=== PATIENT | female | born 1955 | race Caucasian/White ===

== ENCOUNTER 2016-12-13 13:58 | Emergency (ER) | payer MEDICARE, OTHER ==
[~2016-12-13] VITALS: Ht 165.1 cm; Wt 77.2 kg
[~2016-12-13 13:58] MED LIST: AMIT50TA3 PO; ATEN25 PO; DILT90SR PO; FERR-89 PO; GABA-531 PO; HYDR-4031 PO; HYDR2 PO; MET750 PO; MULT-1192 PO; PARO20TA24 PO; RIVA20TA PO
[2016-12-13 16:30] VITALS: BP 157/90
== END 2016-12-13 17:11 | disposition home or self-care (01) ==
LOC: EMS 14:00 → EEVIPCON 14:00 → EMS 17:11
DX: S09.90XA Unspecified injury of head, initial encounter (principal); I10 Essential (primary) hypertension; F17.200 Nicotine dependence, unspecified, uncomplicated; Z88.8 Allergy status to other drugs, medicaments and biological substances; Y08.89XA Assault by other specified means, initial encounter; Y93.89 Activity, other specified; Y92.89 Other specified places as the place of occurrence of the external cause; Y99.8 Other external cause status
CPT/HCPCS: 70450; 99284

== ENCOUNTER 2017-01-05 00:01 | Outpatient (RCR) | payer MEDICARE, MEDICAID, SELFPAY ==
[2014-12-17 13:54] VITALS: BP 137/83
[~2017-01-05 00:01] MED LIST changes: +ALPR0.5T8 PO; +ALPR1TAB7 PO; +AMIT25TA34 PO; +AMLO2.5T PO; +AMOX500T2 PO; -ATEN25 PO; +ATEN25TA PO; +CARV6 PO; +DICL2100G TP; +DILT-39 PO; +DILT120T PO; +DULO20CA30 PO; +DULO60CA44 PO; +FERR325C PO; +HYDR-308 PO; +HYDR4TAB56 PO; +METH750T3 PO; +OLAN10TA6 PO; +PANT40TA25 PO; +SENN-49 PO; +WARF1 PO; +WARF2 PO; +WARF5 PO; +WARF6TAB23 PO; +WARF7.5 PO; +elavil PO
[2017-01-30 07:16] LABS: HEPATITIS C AB SCREEN 0.1 s/co ratio (0.0-0.9)
== END 2017-02-03 | disposition home or self-care (01) ==
LOC: IOPBV 00:01
PROVIDERS: ATTEND Psychiatry & Neurology Psychiatry
DX: F25.9 Schizoaffective disorder, unspecified (principal); I10 Essential (primary) hypertension; K21.9 Gastro-esophageal reflux disease without esophagitis; G89.29 Other chronic pain; I25.10 Atherosclerotic heart disease of native coronary artery without angina pectoris; Q24.9 Congenital malformation of heart, unspecified; M79.7 Fibromyalgia; M41.80 Other forms of scoliosis, site unspecified; F32.9 Major depressive disorder, single episode, unspecified; F17.210 Nicotine dependence, cigarettes, uncomplicated; F12.21 Cannabis dependence, in remission; F14.21 Cocaine dependence, in remission; Z86.79 Personal history of other diseases of the circulatory system; Z79.01 Long term (current) use of anticoagulants; Z86.718 Personal history of other venous thrombosis and embolism; Z87.81 Personal history of (healed) traumatic fracture; Z88.8 Allergy status to other drugs, medicaments and biological substances
CPT/HCPCS: 86705; 86706; 86708; 86709; 86803; 87340; 90853

== ENCOUNTER 2017-06-04 11:36 | Emergency (ER) | payer MEDICARE, OTHER ==
[~2017-06-04] VITALS: Ht 167.6 cm; Wt 75.0 kg
[~2017-06-04 11:36] MED LIST changes: -ALPR0.5T8 PO; -ALPR1TAB7 PO; -AMIT25TA34 PO; -AMLO2.5T PO; -AMOX500T2 PO; -CARV6 PO; -DICL2100G TP; -DILT-39 PO; -DILT120T PO; -DULO20CA30 PO; -DULO60CA44 PO; -FERR325C PO; -HYDR-308 PO; -HYDR2 PO; -HYDR4TAB56 PO; -METH750T3 PO; -OLAN10TA6 PO; -PANT40TA25 PO; -SENN-49 PO; -WARF1 PO; -WARF2 PO; -WARF5 PO; -WARF6TAB23 PO; -WARF7.5 PO; -elavil PO
[2017-06-04 12:46] LABS: BASOPHILS # (AUTO) 0.27 K/uL (0.00-0.20); BASOPHILS % (AUTO) 3.5 % (0.0-2.0); EOSINOPHILS % (AUTO) 3.83 % (1.0-6.0); HEMATOCRIT 40.2 % (36-46); HEMOGLOBIN 13.4 g/dL (12.0-16.0); LYMPHOCYTES # (AUTO) 2.7 K/uL (1.0-4.8); LYMPHOCYTES % (AUTO) 34.1 % (22.0-44.0); MEAN CORPUSCULAR HEMOGLOBIN 29.3 pg (26.0-34.0); MEAN CORPUSCULAR HGB CONC 33.4 G/dL (31.0-37.0); MEAN CORPUSCULAR VOLUME 88 fL (80-100); MONOCYTES # (AUTO) 0.3 K/uL (0.1-1.0); MONOCYTES % (AUTO) 4.3 % (2.0-9.0); NEUTROPHILS # (AUTO) 4.2 K/uL (1.8-7.7); NEUTROPHILS % (AUTO) 54.2 % (40.0-70.0); PLATELET COUNT (AUTO) 190 K/uL (150-450); RED BLOOD CELL COUNT(AUTO) 4.58 MIL/uL (4.00-5.20); RED CELL DISTRIBUTION WIDTH 14.5 % (11.5-14.5)
[2017-06-04 12:54] LABS: ANION GAP 8 mmol/L (8-16); CALCIUM, TOTAL 8.7 mg/dL (8.8-10.5); CARBON DIOXIDE 27 mmol/L (22-29); CHLORIDE 101 mmol/L (98-107); CREATININE 0.85 mg/dL (0.60-1.30); GLOMERULAR FILTR. RATE CALC > 60 mL/min (>60); GLUCOSE,RANDOM 103 mg/dL (70-110); POTASSIUM 4.2 mmol/L (3.5-5.1); SODIUM SERUM 136 mmol/L (136-145); UREA NITROGEN, BLOOD 11 mg/dL (7-18)
[2017-06-04 13:00] LABS: ALANINE AMINOTRANSFERASE 26 U/L (12-78); ALBUMIN 3.3 g/dL (3.4-5.0); ALKALINE PHOSPHATASE 75 U/L (46-116); ASPARTATE AMINOTRANSFERASE 20 U/L (15-37); BILIRUBIN,TOTAL 0.2 mg/dL (0.1-1.0); TOTAL PROTEIN, SERUM 6.9 g/dL (6.4-8.2)
[2017-06-04 14:35] LABS: AMPHET/METH SCREEN,URINE NEGATIVE (NEGATIVE); BARBITURATE SCREEN, URINE NEGATIVE (NEGATIVE); BENZODIAZEPINES SCREEN,URINE NEGATIVE (NEGATIVE); CANNABINOID SCREEN,URINE NEGATIVE (NEGATIVE); COCAINE SCREEN,URINE NEGATIVE (NEGATIVE); METHADONE SCREEN, URINE NEGATIVE (NEGATIVE); OPIATE SCREEN,URINE NEGATIVE (NEGATIVE)
[2017-06-04 14:36] LABS: PHENCYCLIDINE SCREEN,URINE NEGATIVE (NEGATIVE)
[2017-06-04 15:15] VITALS: BP 103/70
[2017-06-07] MEDS ORDERED: FERR-89 PO (13:17)
== END 2017-06-04 16:01 | disposition home or self-care (01) ==
LOC: EMS 11:39
DX: F72 Severe intellectual disabilities (principal); F10.129 Alcohol abuse with intoxication, unspecified; I10 Essential (primary) hypertension; F20.9 Schizophrenia, unspecified; F32.9 Major depressive disorder, single episode, unspecified; F17.210 Nicotine dependence, cigarettes, uncomplicated; Z02.89 Encounter for other administrative examinations; Z88.8 Allergy status to other drugs, medicaments and biological substances; Y90.6 Blood alcohol level of 120-199 mg/100 ml
CPT/HCPCS: 36415; 80053; 80307; 85025; 99285; G0480

== ENCOUNTER 2017-06-12 16:56 | Inpatient (IN) | payer MEDICARE, MEDICAID ==
[~2017-06-12] VITALS: Ht 154.9 cm; Wt 75.7 kg
[~2017-06-12 16:56] MED LIST changes: -GABA-531 PO; -HYDR-4031 PO; -MET750 PO; -MULT-1192 PO; -PARO20TA24 PO
[2017-06-12] MEDS ORDERED: ZOLPIDEM TARTRATE 10 MG TABLET PO PRN (18:45)
[2017-06-12 19:02] VITALS: BP 131/77
[2017-06-12 19:47] VITALS: BP 146/78
[2017-06-12] MEDS ORDERED: IBUPROFEN 400 MG TABLET PO PRN (21:00)
[2017-06-12] MEDS: AMITRIPTYLINE HCL 50 MG TABLET PO SCH (21:24)
[2017-06-12] MEDS ORDERED: PNEUMOCOCCAL VACCINE POLYVALENT 0.5 ML VIAL [PPSV23] IM ONE (21:30)
[2017-06-13 04:13] VITALS: BP 149/86
[2017-06-13] MEDS: LORazepam 1 MG TABLET PO PRN ×2 (04:18→10:06)
[2017-06-13] MEDS: FERROUS SULFATE 325 MG EC TABLET PO SCH ×2 (06:59→16:41)
[2017-06-13 08:04] VITALS: BP 127/64
[2017-06-13 08:09] LABS: BASOPHILS % (AUTO) 0.7 % (0.0-2.0); EOSINOPHILS % (AUTO) 2.1 % (1.0-6.0); HEMATOCRIT 36.6 % (36-46); HEMOGLOBIN 12.4 g/dL (12.0-16.0); LYMPHOCYTES # (AUTO) 1.4 K/uL (1.0-4.8); LYMPHOCYTES % (AUTO) 28.9 % (22.0-44.0); MEAN CORPUSCULAR HEMOGLOBIN 28.6 pg (26.0-34.0); MEAN CORPUSCULAR HGB CONC 33.8 G/dL (31.0-37.0); MEAN CORPUSCULAR VOLUME 85 fL (80-100); MONOCYTES # (AUTO) 0.5 K/uL (0.1-1.0); MONOCYTES % (AUTO) 10.3 % (2.0-9.0); NEUTROPHILS # (AUTO) 2.8 K/uL (1.8-7.7); PLATELET COUNT (AUTO) 131 K/uL (150-450); RED BLOOD CELL COUNT(AUTO) 4.33 MIL/uL (4.00-5.20); RED CELL DISTRIBUTION WIDTH 13.9 % (11.5-14.5)
[2017-06-13 08:17] LABS: HEMOGLOBIN A1C 6.5 % (4.5-6.2)
[2017-06-13] MEDS: DILTIAZEM HCL 90 MG SR CAPSULE PO SCH ×2 (08:21→16:42)
[2017-06-13 08:22] LABS: AMPHET/METH SCREEN,URINE NEGATIVE (NEGATIVE); BARBITURATE SCREEN, URINE NEGATIVE (NEGATIVE); BENZODIAZEPINES SCREEN,URINE NEGATIVE (NEGATIVE); CANNABINOID SCREEN,URINE NEGATIVE (NEGATIVE); COCAINE SCREEN,URINE NEGATIVE (NEGATIVE); METHADONE SCREEN, URINE NEGATIVE (NEGATIVE); OPIATE SCREEN,URINE NEGATIVE (NEGATIVE)
[2017-06-13] MEDS: ATENOLOL 25 MG TABLET PO SCH ×2 (08:22→16:42)
[2017-06-13] MEDS: NICOTINE 7 MG/24 HOUR PATCH TD SCH (08:22)
[2017-06-13 08:24] LABS: PHENCYCLIDINE SCREEN,URINE NEGATIVE (NEGATIVE)
[2017-06-13 08:34] LABS: ALANINE AMINOTRANSFERASE 43 U/L (12-78); ALBUMIN 2.8 g/dL (3.4-5.0); ALKALINE PHOSPHATASE 60 U/L (46-116); ANION GAP 8 mmol/L (8-16); ASPARTATE AMINOTRANSFERASE 60 U/L (15-37); BILIRUBIN,TOTAL 0.2 mg/dL (0.1-1.0); CALCIUM, TOTAL 8.4 mg/dL (8.8-10.5); CARBON DIOXIDE 28 mmol/L (22-29); CHLORIDE 102 mmol/L (98-107); CHOL/HDL RATIO 2.8 (3.9-5.7); CHOLESTEROL 101 mg/dL (131-200); CREATININE 0.73 mg/dL (0.60-1.30); FREE T4 (FREE THYROXINE) 0.92 ng/dL (0.76-1.46); GLOMERULAR FILTR. RATE CALC > 60 mL/min (>60); GLUCOSE,RANDOM 113 mg/dL (70-110); HDL CHOLESTEROL 36 mg/dL (40-60); LDL CHOL (CALC.) 51 mg/dL (0-130); POTASSIUM 3.7 mmol/L (3.5-5.1); SODIUM SERUM 138 mmol/L (136-145); THYROID STIMULATING HORMONE 1.51 uIU/mL (0.36-3.74); TOTAL PROTEIN, SERUM 6.5 g/dL (6.4-8.2); TRIGLYCERIDES 71 mg/dL (15-150); UREA NITROGEN, BLOOD 17 mg/dL (7-18)
[2017-06-13 08:47] LABS: APPEARANCE,URINE CLOUDY (CLEAR); BILIRUBIN,URINE NEGATIVE (NEGATIVE); GLUCOSE, URINE (UA) NEGATIVE (NEGATIVE); KETONES,URINE NEGATIVE (NEGATIVE); LEUKOCYTE ESTERASE ,URINE SMALL (NEGATIVE); NITRATE,URINE POSITIVE (NEGATIVE); OCCULT BLOOD,URINE SMALL (NEGATIVE); PH,URINE 6.5 (5.0-8.0); PROTEIN,URINE NEGATIVE (NEGATIVE); UROBILINOGEN,URINE 0.2 mg/dL (<=1.0)
[2017-06-13 09:01] LABS: RBC,URINE 0-2 /HPF (0-2)
[2017-06-13 09:02] LABS: WBC,URINE 26-50 /HPF (0-5)
[2017-06-13 09:03] LABS: SQUAMOUS EPITHELIAL CELL,UR Rare /LPF (None Seen)
[2017-06-13 09:08] LABS: BACTERIA,URINE Many /HPF (None Seen)
[2017-06-13] MEDS: CIPROFLOXACIN HCL 500 MG TABLET PO SCH ×2 (12:21→16:41)
[2017-06-13] MEDS: ACETAMINOPHEN 325 MG TABLET PO PRN (14:53)
[2017-06-13 16:07] VITALS: BP 131/69
[2017-06-13] MEDS: RIVAROXABAN 20 MG TABLET PO SCH (17:05)
[2017-06-13] MEDS: AMITRIPTYLINE HCL 50 MG TABLET PO SCH (20:34)
[2017-06-14 01:43] VITALS: BP 131/62
[2017-06-14] MEDS: FERROUS SULFATE 325 MG EC TABLET PO SCH ×2 (06:06→16:32)
[2017-06-14] MEDS: DILTIAZEM HCL 90 MG SR CAPSULE PO SCH ×2 (08:42→16:31)
[2017-06-14] MEDS: CIPROFLOXACIN HCL 500 MG TABLET PO SCH ×2 (08:42→16:32)
[2017-06-14] MEDS: ATENOLOL 25 MG TABLET PO SCH ×2 (08:42→16:31)
[2017-06-14] MEDS: NICOTINE 7 MG/24 HOUR PATCH TD SCH (08:42)
[2017-06-14] MEDS: LORazepam 1 MG TABLET PO PRN (08:45)
[2017-06-14 08:53] VITALS: BP 126/64
[2017-06-14 16:21] VITALS: BP 141/81
[2017-06-14] MEDS: ACETAMINOPHEN 325 MG TABLET PO PRN (16:31)
[2017-06-14] MEDS: RIVAROXABAN 20 MG TABLET PO SCH (17:09)
[2017-06-14 17:40] VITALS: BP 131/73
[2017-06-14] MEDS: AMITRIPTYLINE HCL 50 MG TABLET PO SCH (20:34)
[2017-06-15] VITALS: BP 132/69
[2017-06-15] MEDS: FERROUS SULFATE 325 MG EC TABLET PO SCH ×2 (07:05→16:42)
[2017-06-15 08:16] VITALS: BP 137/71
[2017-06-15] MEDS: ATENOLOL 25 MG TABLET PO SCH ×2 (08:21→16:42)
[2017-06-15] MEDS: DILTIAZEM HCL 90 MG SR CAPSULE PO SCH ×2 (08:21→17:11)
[2017-06-15] MEDS: CIPROFLOXACIN HCL 500 MG TABLET PO SCH ×2 (08:21→16:42)
[2017-06-15] MEDS: NICOTINE 7 MG/24 HOUR PATCH TD SCH (08:23)
[2017-06-15 16:32] VITALS: BP 135/71
[2017-06-15] MEDS: RIVAROXABAN 20 MG TABLET PO SCH (17:11)
[2017-06-15] MEDS: ACETAMINOPHEN 325 MG TABLET PO PRN (19:34)
[2017-06-15] MEDS: AMITRIPTYLINE HCL 50 MG TABLET PO SCH (20:40)
[2017-06-16 00:09] VITALS: BP 130/68
[2017-06-16] MEDS: FERROUS SULFATE 325 MG EC TABLET PO SCH ×2 (07:03→17:08)
[2017-06-16 08:15] VITALS: BP 154/74
[2017-06-16] MEDS: NICOTINE 7 MG/24 HOUR PATCH TD SCH (08:15)
[2017-06-16] MEDS: CIPROFLOXACIN HCL 500 MG TABLET PO SCH ×2 (08:15→17:07)
[2017-06-16] MEDS: ATENOLOL 25 MG TABLET PO SCH ×2 (08:15→17:07)
[2017-06-16] MEDS: DILTIAZEM HCL 90 MG SR CAPSULE PO SCH ×2 (08:16→17:07)
[2017-06-16 09:30] VITALS: BP 121/62
[2017-06-16 14:20] VITALS: BP 118/64
[2017-06-16] MEDS: ACETAMINOPHEN 325 MG TABLET PO PRN (14:20)
[2017-06-16 17:00] VITALS: BP 122/86
[2017-06-16] MEDS: RIVAROXABAN 20 MG TABLET PO SCH (17:07)
[2017-06-16] MEDS: LORazepam 1 MG TABLET PO PRN (20:09)
[2017-06-16] MEDS: AMITRIPTYLINE HCL 50 MG TABLET PO SCH (20:32)
[2017-06-17 01:33] VITALS: BP 129/62
[2017-06-17 04:04] VITALS: BP 130/69
[2017-06-17] MEDS: LORazepam 1 MG TABLET PO PRN ×3 (04:04→21:24)
[2017-06-17] MEDS: FERROUS SULFATE 325 MG EC TABLET PO SCH ×2 (06:48→16:34)
[2017-06-17 08:35] VITALS: BP 109/69
[2017-06-17] MEDS: ATENOLOL 25 MG TABLET PO SCH ×2 (08:50→16:34)
[2017-06-17] MEDS: NICOTINE 7 MG/24 HOUR PATCH TD SCH (08:50)
[2017-06-17] MEDS: DILTIAZEM HCL 90 MG SR CAPSULE PO SCH ×2 (08:50→16:35)
[2017-06-17] MEDS: CIPROFLOXACIN HCL 500 MG TABLET PO SCH ×2 (08:50→16:34)
[2017-06-17 12:57] VITALS: BP 112/70
[2017-06-17] MEDS: ACETAMINOPHEN 325 MG TABLET PO PRN (12:58)
[2017-06-17 16:19] VITALS: BP 139/77
[2017-06-17] MEDS: RIVAROXABAN 20 MG TABLET PO SCH (16:34)
[2017-06-17] MEDS: AMITRIPTYLINE HCL 50 MG TABLET PO SCH (20:27)
[2017-06-18] VITALS (7 sets, daily range): BP systolic 119–185; BP diastolic 65–83
[2017-06-18] MEDS: LORazepam 1 MG TABLET PO PRN ×4 (02:44→17:30)
[2017-06-18] MEDS: FERROUS SULFATE 325 MG EC TABLET PO SCH ×2 (06:48→16:35)
[2017-06-18] MEDS: DILTIAZEM HCL 90 MG SR CAPSULE PO SCH ×2 (08:46→16:35)
[2017-06-18] MEDS: CIPROFLOXACIN HCL 500 MG TABLET PO SCH ×2 (08:46→16:35)
[2017-06-18] MEDS: ATENOLOL 25 MG TABLET PO SCH ×2 (08:46→16:35)
[2017-06-18] MEDS: NICOTINE 7 MG/24 HOUR PATCH TD SCH (08:49)
[2017-06-18] MEDS: RIVAROXABAN 20 MG TABLET PO SCH (16:57)
[2017-06-18] MEDS: ACETAMINOPHEN 325 MG TABLET PO PRN (18:55)
[2017-06-18] MEDS: HydrALAZINE HCL 25 MG TABLET PO SCH (20:10)
[2017-06-18] MEDS: AMITRIPTYLINE HCL 50 MG TABLET PO SCH (20:33)
[2017-06-19 01:15] VITALS: BP 144/63
[2017-06-19] MEDS: FERROUS SULFATE 325 MG EC TABLET PO SCH ×2 (07:14→16:38)
[2017-06-19 08:19] VITALS: BP 142/75
[2017-06-19] MEDS: ATENOLOL 25 MG TABLET PO SCH ×2 (08:22→16:38)
[2017-06-19] MEDS: HydrALAZINE HCL 25 MG TABLET PO SCH ×3 (08:23→17:08)
[2017-06-19] MEDS: DILTIAZEM HCL 90 MG SR CAPSULE PO SCH ×2 (08:23→16:38)
[2017-06-19] MEDS: NICOTINE 7 MG/24 HOUR PATCH TD SCH (08:24)
[2017-06-19] MEDS: CIPROFLOXACIN HCL 500 MG TABLET PO SCH ×2 (08:30→16:38)
[2017-06-19] MEDS: LORazepam 1 MG TABLET PO PRN ×2 (08:35→13:42)
[2017-06-19 16:05] VITALS: BP 136/77
[2017-06-19] MEDS: ACETAMINOPHEN 325 MG TABLET PO PRN (16:47)
[2017-06-19] MEDS: RIVAROXABAN 20 MG TABLET PO SCH (17:08)
[2017-06-19] MEDS: AMITRIPTYLINE HCL 50 MG TABLET PO SCH (20:38)
[2017-06-20 06:36] VITALS: BP 138/61
[2017-06-20] MEDS: FERROUS SULFATE 325 MG EC TABLET PO SCH (07:05)
[2017-06-20 08:13] VITALS: BP 135/74
[2017-06-20] MEDS: CIPROFLOXACIN HCL 500 MG TABLET PO SCH (08:33)
[2017-06-20] MEDS: HydrALAZINE HCL 25 MG TABLET PO SCH ×2 (08:33→12:53)
[2017-06-20] MEDS: ATENOLOL 25 MG TABLET PO SCH (08:34)
[2017-06-20] MEDS: DILTIAZEM HCL 90 MG SR CAPSULE PO SCH (08:34)
[2017-06-20] MEDS: NICOTINE 7 MG/24 HOUR PATCH TD SCH (08:36)
[2017-06-20] MEDS ORDERED: CIPR250S4 PO (09:10)
== END 2017-06-20 13:15 | disposition home or self-care (01) | DRG 885 ==
LOC: B2X 18:00
PROVIDERS: ADMIT Psychiatry & Neurology Psychiatry; ATTEND Psychiatry & Neurology Psychiatry
DX: F25.9 Schizoaffective disorder, unspecified (principal); I48.2 Chronic atrial fibrillation; N39.0 Urinary tract infection, site not specified; F10.10 Alcohol abuse, uncomplicated; I10 Essential (primary) hypertension; I25.10 Atherosclerotic heart disease of native coronary artery without angina pectoris; K21.9 Gastro-esophageal reflux disease without esophagitis; M19.90 Unspecified osteoarthritis, unspecified site; M79.7 Fibromyalgia; F19.10 Other psychoactive substance abuse, uncomplicated; R73.9 Hyperglycemia, unspecified; Z71.51 Drug abuse counseling and surveillance of drug abuser; Z71.41 Alcohol abuse counseling and surveillance of alcoholic; Z79.01 Long term (current) use of anticoagulants; Z86.718 Personal history of other venous thrombosis and embolism
CPT/HCPCS: 80074; 80307; 83036; 84439; 84443; 87081; 87086

== ENCOUNTER 2019-01-29 19:17 | Emergency (ER) | payer MEDICARE, OTHER ==
[~2019-01-29] VITALS: Ht 162.6 cm; Wt 81.8 kg
[~2019-01-29 19:17] MED LIST changes: +CIPR250S4 PO
[2019-01-29 20:39] LABS: BASOPHILS % (AUTO) 0.5 % (0.0-2.0); EOSINOPHILS % (AUTO) 0 % (1.0-6.0); HEMATOCRIT 36.6 % (36-46); HEMOGLOBIN 12.2 g/dL (12.0-16.0); LYMPHOCYTES # (AUTO) 1.6 K/uL (1.0-4.8); LYMPHOCYTES % (AUTO) 15.7 % (22.0-44.0); MEAN CORPUSCULAR HEMOGLOBIN 30.2 pg (26.0-34.0); MEAN CORPUSCULAR HGB CONC 33.4 G/dL (31.0-37.0); MEAN CORPUSCULAR VOLUME 90 fL (80-100); MONOCYTES # (AUTO) 0.5 K/uL (0.1-1.0); MONOCYTES % (AUTO) 5.1 % (2.0-9.0); NEUTROPHILS # (AUTO) 8.1 K/uL (1.8-7.7); NEUTROPHILS % (AUTO) 78.7 % (40.0-70.0); PLATELET COUNT (AUTO) 181 K/uL (150-450); RED BLOOD CELL COUNT(AUTO) 4.05 MIL/uL (4.00-5.20); RED CELL DISTRIBUTION WIDTH 13.8 % (11.5-14.5)
[2019-01-29 20:41] LABS: GLUCOSE,POINT OF CARE 144 MG/DL (70-110)
[2019-01-29 21:08] LABS: ALANINE AMINOTRANSFERASE 27 U/L (12-78); ALBUMIN 3.9 g/dL (3.4-5.0); ALKALINE PHOSPHATASE 58 U/L (46-116); ANION GAP 10 mmol/L (8-16); ASPARTATE AMINOTRANSFERASE 17 U/L (15-37); BILIRUBIN,TOTAL 0.5 mg/dL (0.1-1.0); CALCIUM, TOTAL 9.8 mg/dL (8.8-10.5); CARBON DIOXIDE 25 mmol/L (22-29); CHLORIDE 90 mmol/L (98-107); CREATINE KINASE, TOTAL ONLY 62 U/L (26-192); CREATININE 0.87 mg/dL (0.60-1.30); GLOMERULAR FILTR. RATE CALC > 60 mL/min (>60); GLUCOSE,RANDOM 142 mg/dL (70-110); POTASSIUM 3.7 mmol/L (3.5-5.1); SODIUM SERUM 125 mmol/L (136-145); TOTAL PROTEIN, SERUM 7.7 g/dL (6.4-8.2); UREA NITROGEN, BLOOD 13 mg/dL (7-18)
[2019-01-29 21:09] LABS: APPEARANCE,URINE CLEAR (CLEAR); BILIRUBIN,URINE NEGATIVE (NEGATIVE); GLUCOSE, URINE (UA) NEGATIVE (NEGATIVE); KETONES,URINE NEGATIVE (NEGATIVE); LEUKOCYTE ESTERASE ,URINE TRACE (NEGATIVE); NITRATE,URINE NEGATIVE (NEGATIVE); OCCULT BLOOD,URINE NEGATIVE (NEGATIVE); PH,URINE 7.5 (5.0-8.0); PROTEIN,URINE NEGATIVE (NEGATIVE); UROBILINOGEN,URINE 0.2 mg/dL (<=1.0)
[2019-01-29 21:10] LABS: D-DIMER 0.41 mg/L FEU (0.00-0.50); PROTHROMBIN TIME 10.8 SEC (9.4-11.6)
[2019-01-29 21:12] LABS: B-TYPE NATRIURETIC PEPTIDE 949 pg/mL (0-100)
[2019-01-29 21:54] LABS: BACTERIA,URINE Few /HPF (None Seen); RBC,URINE None Seen /HPF (0-2)
[2019-01-29 21:55] LABS: SQUAMOUS EPITHELIAL CELL,UR Few /LPF (None Seen)
[2019-01-29 22:20] VITALS: BP 170/91
== END 2019-01-30 01:39 | disposition home or self-care (01) ==
LOC: EMS 19:19
DX: I10 Essential (primary) hypertension (principal); F20.9 Schizophrenia, unspecified; F32.9 Major depressive disorder, single episode, unspecified; F17.210 Nicotine dependence, cigarettes, uncomplicated; Z88.8 Allergy status to other drugs, medicaments and biological substances
CPT/HCPCS: 36415; 71045; 80053; 81001; 82550; 82962; 83880; 84484; 85025; 85379; 85610; 85730; 93005; 99285; G0480

== ENCOUNTER 2019-04-18 12:14 | Inpatient (IN) | payer MEDICARE, OTHER ==
[~2019-04-18] VITALS: Ht 167.6 cm; Wt 74.9 kg
[~2019-04-18 12:14] MED LIST changes: -CIPR250S4 PO
[2019-04-18] MEDS ORDERED: 0.9% SODIUM CHLORIDE 15 ML NEB SOLUTION NEB ONE (12:45)
[2019-04-18] MEDS ORDERED: ALBUTEROL SULFATE 5 MG/ML 20 ML NEB SOLN [BULK] NEB ONE (12:45)
[2019-04-18] MEDS ORDERED: ALBUTEROL SULFATE HFA 90 MCG/PUFF 8 GM INHALER IH ONE (12:45)
[2019-04-18] MEDS ORDERED: IPRATROPIUM BROMIDE 0.5 MG/2.5 ML NEB SOLUTION NEB ONE (12:45)
[2019-04-18 12:52] LABS: BASOPHILS % (AUTO) 1.1 % (0.0-2.0); EOSINOPHILS % (AUTO) 0.2 % (1.0-6.0); HEMATOCRIT 39.1 % (36-46); HEMOGLOBIN 13.2 g/dL (12.0-16.0); MEAN CORPUSCULAR HEMOGLOBIN 29.4 pg (26.0-34.0); MEAN CORPUSCULAR HGB CONC 33.7 G/dL (31.0-37.0); MEAN CORPUSCULAR VOLUME 87 fL (80-100); MONOCYTES # (AUTO) 0.3 K/uL (0.1-1.0); NEUTROPHILS # (AUTO) 5.3 K/uL (1.8-7.7); NEUTROPHILS % (AUTO) 78.7 % (40.0-70.0); PLATELET COUNT (AUTO) 237 K/uL (150-450); RED BLOOD CELL COUNT(AUTO) 4.48 MIL/uL (4.00-5.20); RED CELL DISTRIBUTION WIDTH 13.9 % (11.5-14.5)
[2019-04-18 13:02] LABS: ANION GAP 11 mmol/L (8-16); CALCIUM, TOTAL 9.4 mg/dL (8.8-10.5); CARBON DIOXIDE 24 mmol/L (22-29); CHLORIDE 93 mmol/L (98-107); CREATININE 0.68 mg/dL (0.60-1.30); GLOMERULAR FILTR. RATE CALC > 60 mL/min (>60); GLUCOSE,RANDOM 108 mg/dL (70-110); POTASSIUM 4.3 mmol/L (3.5-5.1); SODIUM SERUM 128 mmol/L (136-145); UREA NITROGEN, BLOOD 6 mg/dL (7-18)
[2019-04-18 13:08] LABS: ALANINE AMINOTRANSFERASE 21 U/L (12-78); ALBUMIN 3.7 g/dL (3.4-5.0); ALKALINE PHOSPHATASE 67 U/L (46-116); ASPARTATE AMINOTRANSFERASE 22 U/L (15-37); BILIRUBIN,TOTAL 0.2 mg/dL (0.1-1.0); TOTAL PROTEIN, SERUM 7.6 g/dL (6.4-8.2)
[2019-04-18 13:09] LABS: B-TYPE NATRIURETIC PEPTIDE 51 pg/mL (0-100)
[2019-04-18 13:11] LABS: PROTHROMBIN TIME 10.4 SEC (9.4-11.6)
[2019-04-18] MEDS ORDERED: SODIUM CHLORIDE 1 GM TABLET PO ONE (13:30)
[2019-04-18] MEDS ORDERED: LORazepam 1 MG TABLET PO ONE (14:30)
[2019-04-18] MEDS ORDERED: SODIUM CHLORIDE 0.9% 1,000 ML IV ONE (16:00)
[2019-04-18] MEDS ORDERED: ACETAMINOPHEN 325 MG TABLET PO PRN (16:45)
[2019-04-18] MEDS ORDERED: 0.9% SODIUM CHLORIDE 10 ML SYRINGE IVP PRN (16:45)
[2019-04-18] MEDS ORDERED: ONDANSETRON HCL 4 MG/2 ML VIAL IVP PRN (16:45)
[2019-04-18 18:49] VITALS: BP 159/88
[2019-04-18 20:04] VITALS: BP 145/89
[2019-04-18] MEDS ORDERED: PNEUMOCOCCAL VACCINE POLYVALENT 0.5 ML VIAL [PPSV23] IM ONE (20:30)
[2019-04-18 23:19] VITALS: BP 153/88
[2019-04-19 05:41] VITALS: BP 158/72
[2019-04-19 06:50] LABS: BASOPHILS % (AUTO) 0.9 % (0.0-2.0); EOSINOPHILS % (AUTO) 1.7 % (1.0-6.0); HEMATOCRIT 39.6 % (36-46); HEMOGLOBIN 13.3 g/dL (12.0-16.0); LYMPHOCYTES # (AUTO) 1.3 K/uL (1.0-4.8); LYMPHOCYTES % (AUTO) 18.1 % (22.0-44.0); MEAN CORPUSCULAR HEMOGLOBIN 29.7 pg (26.0-34.0); MEAN CORPUSCULAR HGB CONC 33.6 G/dL (31.0-37.0); MEAN CORPUSCULAR VOLUME 88 fL (80-100); MONOCYTES # (AUTO) 0.5 K/uL (0.1-1.0); MONOCYTES % (AUTO) 7.2 % (2.0-9.0); NEUTROPHILS # (AUTO) 5.2 K/uL (1.8-7.7); NEUTROPHILS % (AUTO) 72.1 % (40.0-70.0); PLATELET COUNT (AUTO) 241 K/uL (150-450); RED BLOOD CELL COUNT(AUTO) 4.49 MIL/uL (4.00-5.20); RED CELL DISTRIBUTION WIDTH 14.2 % (11.5-14.5)
[2019-04-19 07:24] LABS: ALANINE AMINOTRANSFERASE 17 U/L (12-78); ALBUMIN 3.2 g/dL (3.4-5.0); ALKALINE PHOSPHATASE 67 U/L (46-116); ANION GAP 8 mmol/L (8-16); ASPARTATE AMINOTRANSFERASE 19 U/L (15-37); BILIRUBIN,TOTAL 0.4 mg/dL (0.1-1.0); CALCIUM, TOTAL 8.7 mg/dL (8.8-10.5); CARBON DIOXIDE 27 mmol/L (22-29); CHLORIDE 98 mmol/L (98-107); CREATININE 0.81 mg/dL (0.60-1.30); GLOMERULAR FILTR. RATE CALC > 60 mL/min (>60); GLUCOSE,RANDOM 111 mg/dL (70-110); POTASSIUM 4.2 mmol/L (3.5-5.1); SODIUM SERUM 133 mmol/L (136-145); TOTAL PROTEIN, SERUM 6.9 g/dL (6.4-8.2); UREA NITROGEN, BLOOD 6 mg/dL (7-18)
[2019-04-19 08:11] VITALS: BP 170/83
[2019-04-19 11:54] VITALS: BP 157/98
[2019-04-19] MEDS ORDERED: BISACODYL 10 MG RECTAL RECTAL SUPPOSITORY PR PRN (12:00)
[2019-04-19] MEDS ORDERED: MAGNESIUM HYDROXIDE SUSPENSION 30 ML UDCUP PO PRN (12:00)
[2019-04-19] MEDS ORDERED: ALBUTEROL SULFATE 2.5 MG/0.5 ML NEB SOLUTION NEB PRN (12:00)
[2019-04-19] MEDS ORDERED: DILTIAZEM HCL 30 MG TABLET PO ONE (12:00)
[2019-04-19] MEDS ORDERED: ASPIRIN 81 MG CHEWABLE TABLET PO ONE (12:00)
[2019-04-19] MEDS ORDERED: ACETAMINOPHEN 325 MG TABLET PO PRN (12:00)
[2019-04-19] MEDS ORDERED: MORPHINE SULFATE 2 MG/ML SYRINGE IVP PRN (12:00)
[2019-04-19] MEDS ORDERED: OxyCODONE HCL/ACETAMINOPHEN 5-325 MG TABLET PO PRN (12:00)
[2019-04-19] MEDS ORDERED: ZOLPIDEM TARTRATE 5 MG TABLET PO PRN (12:00)
[2019-04-19] MEDS ORDERED: ONDANSETRON HCL 4 MG/2 ML VIAL IVP PRN (12:00)
[2019-04-19] MEDS ORDERED: ATENOLOL 50 MG TABLET PO ONE (12:00)
[2019-04-19] MEDS ORDERED: IPRATROPIUM BROMIDE 0.5 MG/2.5 ML NEB SOLUTION NEB PRN (12:00)
[2019-04-19] MEDS: MethylPREDNISolone SOD SUCC 125 MG/2 ML VIAL IVP SCH ×3 (13:07→23:36)
[2019-04-19] MEDS: NICOTINE 21 MG/24 HOUR PATCH TD SCH (13:08)
[2019-04-19] MEDS: ALBUTEROL SULFATE 2.5 MG/0.5 ML NEB SOLUTION NEB SCH ×3 (15:00→23:00)
[2019-04-19] MEDS: IPRATROPIUM BROMIDE 0.5 MG/2.5 ML NEB SOLUTION NEB SCH ×3 (15:00→23:00)
[2019-04-19] MEDS ORDERED: HEPARIN SODIUM,PORCINE 5,000 UNITS/ML VIAL IVP ONE (15:30)
[2019-04-19] MEDS ORDERED: HEPARIN SODIUM,PORCINE 5,000 UNITS/ML VIAL IVP PRN ×2 (15:30)
[2019-04-19 15:45] LABS: BASOPHILS % (AUTO) 1.1 % (0.0-2.0); EOSINOPHILS % (AUTO) 0.5 % (1.0-6.0); HEMATOCRIT 42.9 % (36-46); HEMOGLOBIN 14.4 g/dL (12.0-16.0); LYMPHOCYTES # (AUTO) 0.7 K/uL (1.0-4.8); LYMPHOCYTES % (AUTO) 8.9 % (22.0-44.0); MEAN CORPUSCULAR HEMOGLOBIN 29.4 pg (26.0-34.0); MEAN CORPUSCULAR HGB CONC 33.5 G/dL (31.0-37.0); MEAN CORPUSCULAR VOLUME 88 fL (80-100); MONOCYTES # (AUTO) 0.2 K/uL (0.1-1.0); NEUTROPHILS # (AUTO) 6.6 K/uL (1.8-7.7); PLATELET COUNT (AUTO) 250 K/uL (150-450); RED BLOOD CELL COUNT(AUTO) 4.89 MIL/uL (4.00-5.20); RED CELL DISTRIBUTION WIDTH 14.2 % (11.5-14.5)
[2019-04-19 15:49] LABS: NEUTROPHILS % (AUTO) 86.5 % (40.0-70.0)
[2019-04-19 15:59] LABS: PROTHROMBIN TIME 10.6 SEC (9.4-11.6)
[2019-04-19 16:09] VITALS: BP 151/81
[2019-04-19] MEDS: HEPARIN SODIUM 25000 UNITS/D5W 250 ML IV PRN ×2 (17:10→22:34)
[2019-04-19] MEDS ORDERED: RIVAROXABAN 20 MG TABLET PO SCH (18:00)
[2019-04-19] MEDS: FERROUS SULFATE 325 MG EC TABLET PO SCH (18:18)
[2019-04-19 19:37] VITALS: BP 159/81
[2019-04-19] MEDS: AMITRIPTYLINE HCL 50 MG TABLET PO SCH (20:53)
[2019-04-19] MEDS: ATENOLOL 25 MG TABLET PO SCH (20:53)
[2019-04-19] MEDS: DILTIAZEM HCL 90 MG SR CAPSULE PO SCH (20:53)
[2019-04-19] MEDS: DOCUSATE SODIUM 100 MG CAPSULE PO SCH (20:56)
[2019-04-20 00:41] VITALS: BP 156/87
[2019-04-20] MEDS: ALBUTEROL SULFATE 2.5 MG/0.5 ML NEB SOLUTION NEB SCH ×6 (02:43→23:10)
[2019-04-20] MEDS: IPRATROPIUM BROMIDE 0.5 MG/2.5 ML NEB SOLUTION NEB SCH ×6 (02:43→23:10)
[2019-04-20 05:16] VITALS: BP 146/73
[2019-04-20] MEDS: MethylPREDNISolone SOD SUCC 125 MG/2 ML VIAL IVP SCH ×4 (05:59→23:06)
[2019-04-20 06:33] LABS: BASOPHILS % (AUTO) 1.5 % (0.0-2.0); EOSINOPHILS % (AUTO) 0 % (1.0-6.0); HEMATOCRIT 42.5 % (36-46); HEMOGLOBIN 14.8 g/dL (12.0-16.0); LYMPHOCYTES % (AUTO) 11.4 % (22.0-44.0); MEAN CORPUSCULAR HEMOGLOBIN 30.3 pg (26.0-34.0); MEAN CORPUSCULAR HGB CONC 34.8 G/dL (31.0-37.0); MEAN CORPUSCULAR VOLUME 87 fL (80-100); MONOCYTES # (AUTO) 0.1 K/uL (0.1-1.0); MONOCYTES % (AUTO) 1.1 % (2.0-9.0); NEUTROPHILS # (AUTO) 7.4 K/uL (1.8-7.7); PLATELET COUNT (AUTO) 256 K/uL (150-450); RED BLOOD CELL COUNT(AUTO) 4.89 MIL/uL (4.00-5.20)
[2019-04-20] MEDS: HEPARIN SODIUM 25000 UNITS/D5W 250 ML IV PRN ×2 (07:51→12:23)
[2019-04-20] MEDS: FERROUS SULFATE 325 MG EC TABLET PO SCH ×2 (08:56→18:17)
[2019-04-20] MEDS: PANTOPRAZOLE SODIUM 40 MG DR TABLET PO SCH (08:57)
[2019-04-20] MEDS: ATENOLOL 25 MG TABLET PO SCH ×2 (08:57→20:37)
[2019-04-20] MEDS: DILTIAZEM HCL 90 MG SR CAPSULE PO SCH ×2 (08:57→20:37)
[2019-04-20] MEDS: NICOTINE 21 MG/24 HOUR PATCH TD SCH (08:58)
[2019-04-20] MEDS: ASPIRIN 81 MG CHEWABLE TABLET PO SCH (08:59)
[2019-04-20] MEDS ORDERED: NICOTINE 21 MG/24 HOUR PATCH TD SCH (09:00)
[2019-04-20] MEDS: DOCUSATE SODIUM 100 MG CAPSULE PO SCH ×2 (09:00→20:37)
[2019-04-20 10:23] VITALS: BP 160/76
[2019-04-20 12:34] VITALS: BP 169/94
[2019-04-20 15:41] VITALS: BP 147/91
[2019-04-20 19:41] VITALS: BP 138/77
[2019-04-20] MEDS: AMITRIPTYLINE HCL 50 MG TABLET PO SCH (20:37)
[2019-04-20] MEDS ORDERED: ATORVASTATIN CALCIUM 40 MG TABLET PO SCH (22:15)
[2019-04-21] VITALS (14 sets, daily range): BP systolic 139–178; BP diastolic 63–85
[2019-04-21] MEDS: ALBUTEROL SULFATE 2.5 MG/0.5 ML NEB SOLUTION NEB SCH ×4 (03:33→15:14)
[2019-04-21] MEDS: IPRATROPIUM BROMIDE 0.5 MG/2.5 ML NEB SOLUTION NEB SCH ×4 (03:33→15:14)
[2019-04-21] MEDS: MethylPREDNISolone SOD SUCC 125 MG/2 ML VIAL IVP SCH ×2 (05:52→12:32)
[2019-04-21 06:26] LABS: BASOPHILS % (AUTO) 0.2 % (0.0-2.0); EOSINOPHILS % (AUTO) 0 % (1.0-6.0); HEMATOCRIT 37.5 % (36-46); HEMOGLOBIN 12.8 g/dL (12.0-16.0); LYMPHOCYTES # (AUTO) 0.8 K/uL (1.0-4.8); LYMPHOCYTES % (AUTO) 5.7 % (22.0-44.0); MEAN CORPUSCULAR HEMOGLOBIN 29.7 pg (26.0-34.0); MEAN CORPUSCULAR VOLUME 87 fL (80-100); MONOCYTES # (AUTO) 0.5 K/uL (0.1-1.0); MONOCYTES % (AUTO) 3.6 % (2.0-9.0); PLATELET COUNT (AUTO) 230 K/uL (150-450); RED CELL DISTRIBUTION WIDTH 14.3 % (11.5-14.5)
[2019-04-21 06:43] LABS: CALCIUM, TOTAL 9.3 mg/dL (8.8-10.5); CREATININE 0.98 mg/dL (0.60-1.30); POTASSIUM 3.7 mmol/L (3.5-5.1)
[2019-04-21 06:48] LABS: INR 1.1 (0.9-1.1); PROTHROMBIN TIME 11.6 SEC (9.4-11.6)
[2019-04-21 06:53] LABS: NEUTROPHILS % (AUTO) 90.5 % (40.0-70.0)
[2019-04-21] MEDS: FERROUS SULFATE 325 MG EC TABLET PO SCH (08:00)
[2019-04-21] MEDS: PANTOPRAZOLE SODIUM 40 MG DR TABLET PO SCH (08:12)
[2019-04-21] MEDS: DILTIAZEM HCL 90 MG SR CAPSULE PO SCH (08:12)
[2019-04-21] MEDS: ATENOLOL 25 MG TABLET PO SCH (08:13)
[2019-04-21] MEDS: NICOTINE 21 MG/24 HOUR PATCH TD SCH (08:13)
[2019-04-21] MEDS: DOCUSATE SODIUM 100 MG CAPSULE PO SCH (08:13)
[2019-04-21] MEDS ORDERED: LIDOCAINE/PF 1% 30 ML VIAL ONE (08:30)
[2019-04-21] MEDS ORDERED: SODIUM BICARBONATE 50 MEQ/50 ML VIAL ONE (08:30)
[2019-04-21] MEDS ORDERED: IOHEXOL 300 MG/ML 150 ML VIAL ONE (08:30)
[2019-04-21] MEDS ORDERED: HEPARIN SODIUM 1000 UNITS/NS 1,000 ML ONE (08:31)
[2019-04-21] MEDS: ASPIRIN 81 MG CHEWABLE TABLET PO SCH (09:00)
[2019-04-21] MEDS ORDERED: FentaNYL CITRATE-PF 100 MCG/2 ML VIAL ONE (09:14)
[2019-04-21] MEDS ORDERED: MIDAZOLAM HCL 2 MG/2 ML VIAL ONE (09:14)
[2019-04-21] MEDS ORDERED: SODIUM CHLORIDE 0.9% 500 ML IV ONE (09:27)
[2019-04-21] MEDS ORDERED: HEPARIN SODIUM 1000 UNITS/NS 1,000 ML IARTER ONE (09:27)
[2019-04-21] MEDS ORDERED: IOHEXOL 300 MG/ML 150 ML VIAL IARTER ONE (09:30)
[2019-04-21] MEDS ORDERED: FentaNYL CITRATE-PF 100 MCG/2 ML VIAL IVP ONE (09:30)
[2019-04-21] MEDS ORDERED: LIDOCAINE 1% 30 ML/SOD BICARB 8.4% 4 ML SQ ONE (09:30)
[2019-04-21] MEDS ORDERED: MIDAZOLAM HCL 2 MG/2 ML VIAL IVP ONE (09:30)
[2019-04-21] MEDS ORDERED: LISINOPRIL 20 MG TABLET PO SCH (10:30)
[2019-04-21] MEDS ORDERED: ATOR40TA71 PO (15:47)
[2019-04-21] MEDS ORDERED: LISI-618 PO (15:47)
[2019-04-21] MEDS ORDERED: NICO-704 TD (15:47)
[2019-04-21] MEDS ORDERED: ALBU8HFA IH (15:48)
[2019-04-21] MEDS ORDERED: PRED20 PO ×2 (16:06→16:07)
[2019-04-21] MEDS ORDERED: PRED10 PO ×2 (16:07→16:08)
== END 2019-04-21 16:30 | disposition home or self-care (01) | DRG 281 ==
LOC: EMS 12:16 → 5S 17:07
PROVIDERS: ADMIT Hospitalist; ATTEND Hospitalist
PROC: 4A023N7 Measurement of Cardiac Sampling and Pressure, Left Heart, Percutaneous Approach (ICD-10-PCS; principal; 2019-04-21)
PROC: B2151ZZ Fluoroscopy of Left Heart using Low Osmolar Contrast (ICD-10-PCS; 2019-04-21)
PROC: B2111ZZ Fluoroscopy of Multiple Coronary Arteries using Low Osmolar Contrast (ICD-10-PCS; 2019-04-21)
PROC: B41FZZZ Fluoroscopy of Right Lower Extremity Arteries (ICD-10-PCS; 2019-04-21)
DX: I21.4 Non-ST elevation (NSTEMI) myocardial infarction (principal); E87.1 Hypo-osmolality and hyponatremia; J44.0 Chronic obstructive pulmonary disease with (acute) lower respiratory infection; J44.1 Chronic obstructive pulmonary disease with (acute) exacerbation; J45.901 Unspecified asthma with (acute) exacerbation; I10 Essential (primary) hypertension; I49.9 Cardiac arrhythmia, unspecified; F32.9 Major depressive disorder, single episode, unspecified; F43.10 Post-traumatic stress disorder, unspecified; E78.00 Pure hypercholesterolemia, unspecified; F20.9 Schizophrenia, unspecified; F17.210 Nicotine dependence, cigarettes, uncomplicated; Z88.8 Allergy status to other drugs, medicaments and biological substances; Z86.718 Personal history of other venous thrombosis and embolism; Z82.49 Family history of ischemic heart disease and other diseases of the circulatory system
CPT/HCPCS: 83930; 85379; 93005; 93306; 94060; 94640; 94644; G0378; J1644; J2250; J2930; J3010; J3490; J3535; J7030; J7040; Q9967

== ENCOUNTER 2019-04-28 23:24 | Inpatient (IN) | payer MEDICARE, OTHER ==
[~2019-04-28] VITALS: Ht 157.5 cm; Wt 77.8 kg
[~2019-04-28 23:24] MED LIST changes: +ALBU8HFA IH; +ATOR40TA71 PO; +LISI-618 PO; +NICO-704 TD; +PRED10 PO; +PRED20 PO
[2019-04-29 01:50] LABS: BASOPHILS % (AUTO) 0.6 % (0.0-2.0); EOSINOPHILS % (AUTO) 0.3 % (1.0-6.0); HEMATOCRIT 41.3 % (36-46); HEMOGLOBIN 14.1 g/dL (12.0-16.0); LYMPHOCYTES # (AUTO) 2.1 K/uL (1.0-4.8); LYMPHOCYTES % (AUTO) 20.5 % (22.0-44.0); MEAN CORPUSCULAR HEMOGLOBIN 29.8 pg (26.0-34.0); MEAN CORPUSCULAR HGB CONC 34.2 G/dL (31.0-37.0); MEAN CORPUSCULAR VOLUME 87 fL (80-100); MONOCYTES % (AUTO) 10.2 % (2.0-9.0); NEUTROPHILS # (AUTO) 6.9 K/uL (1.8-7.7); NEUTROPHILS % (AUTO) 68.4 % (40.0-70.0); PLATELET COUNT (AUTO) 267 K/uL (150-450); RED BLOOD CELL COUNT(AUTO) 4.73 MIL/uL (4.00-5.20); RED CELL DISTRIBUTION WIDTH 13.9 % (11.5-14.5)
[2019-04-29 02:10] LABS: ALBUMIN 3.7 g/dL (3.4-5.0); BILIRUBIN,TOTAL 0.9 mg/dL (0.1-1.0); CREATININE 1.08 mg/dL (0.60-1.30); POTASSIUM 4.2 mmol/L (3.5-5.1)
[2019-04-29] MEDS ORDERED: SODIUM CHLORIDE 0.9% 1,000 ML IV ONE ×2 (02:30→10:45)
[2019-04-29] MEDS ORDERED: DIPHENOXYLATE/ATROP 2.5-0.025 MG TABLET PO ONE (02:30)
[2019-04-29] MEDS ORDERED: PERMETHRIN 5% 60 GM CREAM TP ONE (03:15)
[2019-04-29] MEDS ORDERED: ACETAMINOPHEN 325 MG TABLET PO PRN ×2 (04:15→04:30)
[2019-04-29] MEDS ORDERED: 0.9% SODIUM CHLORIDE 10 ML SYRINGE IVP PRN ×2 (04:15→04:30)
[2019-04-29] MEDS ORDERED: ONDANSETRON HCL 4 MG/2 ML VIAL IVP PRN ×2 (04:15→04:30)
[2019-04-29] MEDS ORDERED: MAGNESIUM HYDROXIDE SUSPENSION 30 ML UDCUP PO PRN (04:30)
[2019-04-29] MEDS ORDERED: SODIUM CHLORIDE 3% 500 ML IV ONE (04:30)
[2019-04-29] MEDS ORDERED: OxyCODONE HCL/ACETAMINOPHEN 5-325 MG TABLET PO PRN (04:30)
[2019-04-29 05:02] LABS: CHOL/HDL RATIO 1.6 (3.9-5.7)
[2019-04-29] MEDS: CIPROFLOXACIN 400 MG/D5% WATER 200 ML IV SCH ×2 (06:43→21:39)
[2019-04-29] MEDS: MetroNIDAZOLE 500 MG/NACL 100 ML IV SCH ×3 (08:00→23:59)
[2019-04-29] MEDS: ATENOLOL 25 MG TABLET PO SCH ×2 (08:59→21:38)
[2019-04-29] MEDS: DILTIAZEM HCL 90 MG SR CAPSULE PO SCH ×2 (08:59→21:38)
[2019-04-29] MEDS: FAMOTIDINE 10 MG/ML 2 ML VIAL IVP SCH (09:36)
[2019-04-29] MEDS: DOCUSATE SODIUM 100 MG CAPSULE PO SCH ×2 (09:36→21:00)
[2019-04-29 11:27] LABS: ANION GAP 8 mmol/L (8-16); CARBON DIOXIDE 26 mmol/L (22-29); CHLORIDE 95 mmol/L (98-107); CREATININE 0.92 mg/dL (0.60-1.30); GLOMERULAR FILTR. RATE CALC > 60 mL/min (>60); GLUCOSE,RANDOM 119 mg/dL (70-110); POTASSIUM 3.7 mmol/L (3.5-5.1); SODIUM SERUM 129 mmol/L (136-145); UREA NITROGEN, BLOOD 5 mg/dL (7-18)
[2019-04-29 16:50] LABS: CALCIUM, TOTAL 8.4 mg/dL (8.8-10.5); CREATININE 1.15 mg/dL (0.60-1.30); POTASSIUM 3.8 mmol/L (3.5-5.1)
[2019-04-29] MEDS: RIVAROXABAN 20 MG TABLET PO SCH (18:41)
[2019-04-29 18:45] VITALS: BP 139/75
[2019-04-29 19:42] VITALS: BP 156/58
[2019-04-29] MEDS: ATORVASTATIN CALCIUM 40 MG TABLET PO SCH (21:38)
[2019-04-29] MEDS: OxyCODONE HCL/ACETAMINOPHEN 5-325 MG TABLET PO PRN (21:38)
[2019-04-30] VITALS (7 sets, daily range): BP systolic 113–226; BP diastolic 59–73
[2019-04-30] MEDS ORDERED: INFLUENZA VIRUS VACCINE QVS 2019-20 (3YR+)/PF 60 MCG/0.5 ML SYRINGE IM ONE (00:45)
[2019-04-30] MEDS: CIPROFLOXACIN 400 MG/D5% WATER 200 ML IV SCH ×2 (05:47→18:06)
[2019-04-30 06:41] LABS: BASOPHILS % (AUTO) 0.3 % (0.0-2.0); EOSINOPHILS % (AUTO) 1.5 % (1.0-6.0); HEMATOCRIT 40.6 % (36-46); HEMOGLOBIN 13.8 g/dL (12.0-16.0); LYMPHOCYTES # (AUTO) 2.1 K/uL (1.0-4.8); LYMPHOCYTES % (AUTO) 30.1 % (22.0-44.0); MEAN CORPUSCULAR HEMOGLOBIN 30.1 pg (26.0-34.0); MEAN CORPUSCULAR VOLUME 89 fL (80-100); MONOCYTES # (AUTO) 0.6 K/uL (0.1-1.0); NEUTROPHILS # (AUTO) 4.2 K/uL (1.8-7.7); NEUTROPHILS % (AUTO) 60.1 % (40.0-70.0); PLATELET COUNT (AUTO) 266 K/uL (150-450); RED BLOOD CELL COUNT(AUTO) 4.58 MIL/uL (4.00-5.20); RED CELL DISTRIBUTION WIDTH 14.1 % (11.5-14.5)
[2019-04-30 07:14] LABS: ALBUMIN 3.5 g/dL (3.4-5.0); BILIRUBIN,TOTAL 0.5 mg/dL (0.1-1.0); CALCIUM, TOTAL 8.6 mg/dL (8.8-10.5); CREATININE 1.13 mg/dL (0.60-1.30); MAGNESIUM 1.9 mg/dL (1.80-2.40); PHOSPHORUS 3.1 mg/dL (2.5-4.9); POTASSIUM 4.3 mmol/L (3.5-5.1); THYROID STIMULATING HORMONE 3.6 uIU/mL (0.36-3.74); TOTAL PROTEIN, SERUM 6.7 g/dL (6.4-8.2)
[2019-04-30] MEDS: MetroNIDAZOLE 500 MG/NACL 100 ML IV SCH ×3 (08:18→23:46)
[2019-04-30] MEDS: ATENOLOL 25 MG TABLET PO SCH ×2 (08:19→20:11)
[2019-04-30] MEDS: DILTIAZEM HCL 90 MG SR CAPSULE PO SCH ×2 (08:19→20:11)
[2019-04-30] MEDS: DOCUSATE SODIUM 100 MG CAPSULE PO SCH ×2 (08:19→20:11)
[2019-04-30] MEDS: OxyCODONE HCL/ACETAMINOPHEN 5-325 MG TABLET PO PRN ×4 (08:20→22:49)
[2019-04-30] MEDS: FAMOTIDINE 10 MG/ML 2 ML VIAL IVP SCH (08:20)
[2019-04-30] MEDS: NICOTINE 14 MG/24 HOUR PATCH TD SCH (13:07)
[2019-04-30] MEDS: RIVAROXABAN 20 MG TABLET PO SCH (18:05)
[2019-04-30] MEDS: ATORVASTATIN CALCIUM 40 MG TABLET PO SCH (20:11)
[2019-04-30 22:30] LABS: APPEARANCE,URINE CLEAR (CLEAR); BILIRUBIN,URINE NEGATIVE (NEGATIVE); GLUCOSE, URINE (UA) NEGATIVE (NEGATIVE); KETONES,URINE NEGATIVE (NEGATIVE); LEUKOCYTE ESTERASE ,URINE SMALL (NEGATIVE); NITRATE,URINE NEGATIVE (NEGATIVE); OCCULT BLOOD,URINE NEGATIVE (NEGATIVE); PH,URINE 6.5 (5.0-8.0); PROTEIN,URINE NEGATIVE (NEGATIVE); UROBILINOGEN,URINE 0.2 mg/dL (<=1.0)
[2019-04-30 22:32] LABS: SODIUM,URINE RANDOM 10 mmol/l (20-110)
[2019-04-30 22:35] LABS: OSMOLALITY,URINE 139 mOS/kg (50-1200)
[2019-04-30 22:37] LABS: BACTERIA,URINE Few /HPF (None Seen); RBC,URINE 0-2 /HPF (0-2); SQUAMOUS EPITHELIAL CELL,UR Few /LPF (None Seen)
[2019-05-01] MEDS ORDERED: AMITRIPTYLINE HCL 50 MG TABLET PO ONE (01:45)
[2019-05-01 05:32] VITALS: BP 116/53
[2019-05-01] MEDS: CIPROFLOXACIN 400 MG/D5% WATER 200 ML IV SCH (05:40)
[2019-05-01 06:29] LABS: CALCIUM, TOTAL 8.2 mg/dL (8.8-10.5); CREATININE 0.97 mg/dL (0.60-1.30); MAGNESIUM 1.7 mg/dL (1.80-2.40); PHOSPHORUS 3.9 mg/dL (2.5-4.9); POTASSIUM 3.8 mmol/L (3.5-5.1)
[2019-05-01 07:03] VITALS: BP 142/67
[2019-05-01] MEDS: ATENOLOL 25 MG TABLET PO SCH (08:14)
[2019-05-01] MEDS: MetroNIDAZOLE 500 MG/NACL 100 ML IV SCH ×2 (08:14→16:00)
[2019-05-01] MEDS: DILTIAZEM HCL 90 MG SR CAPSULE PO SCH (08:14)
[2019-05-01] MEDS: NICOTINE 14 MG/24 HOUR PATCH TD SCH (08:15)
[2019-05-01] MEDS: FAMOTIDINE 10 MG/ML 2 ML VIAL IVP SCH (08:15)
[2019-05-01] MEDS: DOCUSATE SODIUM 100 MG CAPSULE PO SCH (08:17)
[2019-05-01] MEDS: OxyCODONE HCL/ACETAMINOPHEN 5-325 MG TABLET PO PRN ×2 (08:21→13:02)
[2019-05-01] MEDS ORDERED: MAGNESIUM SULFATE 1 GM in DEXTROSE 5%-WATER 50 ML IV ONE (10:30)
[2019-05-01 11:22] VITALS: BP 125/69
[2019-05-01] MEDS ORDERED: METR500 PO (12:18)
[2019-05-01] MEDS ORDERED: CIPR-278 PO (12:18)
[2019-05-01] MEDS ORDERED: AMITRIPTYLINE HCL 50 MG TABLET PO SCH (21:00)
== END 2019-05-01 18:05 | disposition home or self-care (01) | DRG 641 ==
LOC: EMS 23:26 → 5N 04-29 16:26
PROVIDERS: ADMIT Internal Medicine; ATTEND Internal Medicine
DX: E87.1 Hypo-osmolality and hyponatremia (principal); R19.7 Diarrhea, unspecified; B86 Scabies; E78.00 Pure hypercholesterolemia, unspecified; I10 Essential (primary) hypertension; F20.9 Schizophrenia, unspecified; J44.9 Chronic obstructive pulmonary disease, unspecified; F32.9 Major depressive disorder, single episode, unspecified; M79.7 Fibromyalgia; F43.10 Post-traumatic stress disorder, unspecified; F17.210 Nicotine dependence, cigarettes, uncomplicated; E78.5 Hyperlipidemia, unspecified; I48.91 Unspecified atrial fibrillation; Z88.8 Allergy status to other drugs, medicaments and biological substances; Z79.899 Other long term (current) drug therapy; Z79.01 Long term (current) use of anticoagulants; E83.42 Hypomagnesemia
CPT/HCPCS: 82533; 83036; 83735; 83930; 83935; 84100; 84295; 84300; 84443; 87086; 93005; 97162; J0744; J3475; J3490; J7030; J7060

== ENCOUNTER 2019-05-04 10:20 | Emergency (ER) | payer MEDICARE, OTHER ==
[~2019-05-04] VITALS: Ht 162.6 cm; Wt 75.5 kg
[~2019-05-04 10:20] MED LIST changes: +CIPR-278 PO; +METR500 PO; -PRED10 PO; -PRED20 PO
[2019-05-04] MEDS ORDERED: SODIUM CHLORIDE 0.9% 1,000 ML IV ONE (10:53)
[2019-05-04 11:10] LABS: EOSINOPHILS % (AUTO) 1.8 % (1.0-6.0); HEMATOCRIT 39.2 % (36-46); HEMOGLOBIN 13.4 g/dL (12.0-16.0); LYMPHOCYTES # (AUTO) 1.9 K/uL (1.0-4.8); LYMPHOCYTES % (AUTO) 33.7 % (22.0-44.0); MEAN CORPUSCULAR HEMOGLOBIN 30.2 pg (26.0-34.0); MEAN CORPUSCULAR HGB CONC 34.2 G/dL (31.0-37.0); MEAN CORPUSCULAR VOLUME 88 fL (80-100); MONOCYTES # (AUTO) 0.5 K/uL (0.1-1.0); MONOCYTES % (AUTO) 8.9 % (2.0-9.0); NEUTROPHILS # (AUTO) 3.1 K/uL (1.8-7.7); NEUTROPHILS % (AUTO) 53.6 % (40.0-70.0); PLATELET COUNT (AUTO) 241 K/uL (150-450); RED BLOOD CELL COUNT(AUTO) 4.44 MIL/uL (4.00-5.20); RED CELL DISTRIBUTION WIDTH 14.1 % (11.5-14.5)
[2019-05-04 11:23] LABS: ANION GAP 11 mmol/L (8-16); CARBON DIOXIDE 26 mmol/L (22-29); CHLORIDE 97 mmol/L (98-107); CREATININE 0.91 mg/dL (0.60-1.30); GLOMERULAR FILTR. RATE CALC > 60 mL/min (>60); GLUCOSE,RANDOM 121 mg/dL (70-110); POTASSIUM 3.6 mmol/L (3.5-5.1); SODIUM SERUM 134 mmol/L (136-145); UREA NITROGEN, BLOOD 10 mg/dL (7-18)
[2019-05-04 11:28] LABS: ALANINE AMINOTRANSFERASE 41 U/L (12-78); ALBUMIN 3.5 g/dL (3.4-5.0); ALKALINE PHOSPHATASE 58 U/L (46-116); ASPARTATE AMINOTRANSFERASE 21 U/L (15-37); BILIRUBIN,TOTAL 0.2 mg/dL (0.1-1.0); LIPASE 210 U/L (73-393); TOTAL PROTEIN, SERUM 6.8 g/dL (6.4-8.2)
[2019-05-04 12:58] LABS: APPEARANCE,URINE CLOUDY (CLEAR); BILIRUBIN,URINE NEGATIVE (NEGATIVE); GLUCOSE, URINE (UA) NEGATIVE (NEGATIVE); KETONES,URINE NEGATIVE (NEGATIVE); LEUKOCYTE ESTERASE ,URINE NEGATIVE (NEGATIVE); NITRATE,URINE POSITIVE (NEGATIVE); OCCULT BLOOD,URINE NEGATIVE (NEGATIVE); PROTEIN,URINE NEGATIVE (NEGATIVE); UROBILINOGEN,URINE 0.2 mg/dL (<=1.0)
[2019-05-04 13:07] LABS: BACTERIA,URINE Many /HPF (None Seen); RBC,URINE 0-2 /HPF (0-2); SQUAMOUS EPITHELIAL CELL,UR Rare /LPF (None Seen); WBC,URINE 0-2 /HPF (0-5)
[2019-05-04 14:29] VITALS: BP 132/68
== END 2019-05-04 16:57 | disposition home or self-care (01) ==
LOC: EMS 10:25
DX: R19.7 Diarrhea, unspecified (principal); E78.00 Pure hypercholesterolemia, unspecified; I10 Essential (primary) hypertension; J44.9 Chronic obstructive pulmonary disease, unspecified; M79.7 Fibromyalgia; F20.9 Schizophrenia, unspecified; F17.210 Nicotine dependence, cigarettes, uncomplicated; Z98.890 Other specified postprocedural states; Z86.718 Personal history of other venous thrombosis and embolism; Z79.899 Other long term (current) drug therapy; Z88.8 Allergy status to other drugs, medicaments and biological substances
CPT/HCPCS: 36415; 80053; 81001; 82962; 83690; 85025; 87077; 87086; 87186; 96360; 99283; J7030

== ENCOUNTER 2020-05-06 10:41 | Inpatient (IN) | payer MEDICARE, OTHER ==
[~2020-05-06] VITALS: Ht 154.9 cm; Wt 71.7 kg
[~2020-05-06 10:41] MED LIST changes: +ATEN-73 PO; -ATEN25TA PO; -CIPR-278 PO; +IPRA4AER IH; -METR500 PO; -NICO-704 TD; +NICO-803 TD; +PRED20 PO; +SULF1TAB42 PO
[2020-05-06] MEDS ORDERED: PredniSONE 20 MG TABLET PO ONE (11:00)
[2020-05-06] MEDS ORDERED: ALBUTEROL SULFATE 2.5 MG/0.5 ML NEB SOLUTION NEB ONE (11:00)
[2020-05-06] MEDS ORDERED: IPRATROPIUM BROMIDE 0.5 MG/2.5 ML NEB SOLUTION NEB ONE (11:00)
[2020-05-06 11:28] LABS: BASOPHILS % (AUTO) 1.5 % (0.0-2.0); EOSINOPHILS % (AUTO) 0.1 % (1.0-6.0); HEMATOCRIT 41.4 % (36-46); HEMOGLOBIN 14.3 g/dL (12.0-16.0); LYMPHOCYTES # (AUTO) 1.1 K/uL (1.0-4.8); LYMPHOCYTES % (AUTO) 15.8 % (22.0-44.0); MEAN CORPUSCULAR HGB CONC 34.5 G/dL (31.0-37.0); MEAN CORPUSCULAR VOLUME 87 fL (80-100); MONOCYTES # (AUTO) 0.4 K/uL (0.1-1.0); MONOCYTES % (AUTO) 6.2 % (2.0-9.0); NEUTROPHILS # (AUTO) 5.2 K/uL (1.8-7.7); NEUTROPHILS % (AUTO) 76.4 % (40.0-70.0); PLATELET COUNT (AUTO) 235 K/uL (150-450); RED BLOOD CELL COUNT(AUTO) 4.77 MIL/uL (4.00-5.20); RED CELL DISTRIBUTION WIDTH 14.6 % (11.5-14.5)
[2020-05-06 11:29] LABS: COVID AG,FIA SOURCE NASOPHARYNGEAL
[2020-05-06 11:39] LABS: ANION GAP 14 mmol/L (8-16); CARBON DIOXIDE 21 mmol/L (22-29); CHLORIDE 91 mmol/L (98-107); CREATININE 0.78 mg/dL (0.60-1.30); GLOMERULAR FILTR. RATE CALC > 60 mL/min (>60); GLUCOSE,RANDOM 94 mg/dL (70-110); POTASSIUM 3.9 mmol/L (3.5-5.1); SODIUM SERUM 126 mmol/L (136-145); UREA NITROGEN, BLOOD 9 mg/dL (7-18)
[2020-05-06 11:54] LABS: INR 1.1 (0.9-1.1); PROTHROMBIN TIME 11.7 SEC (9.4-11.6)
[2020-05-06 12:07] LABS: ALANINE AMINOTRANSFERASE 20 U/L (12-78); ALKALINE PHOSPHATASE 98 U/L (46-116); ASPARTATE AMINOTRANSFERASE 20 U/L (15-37); BILIRUBIN,TOTAL 0.7 mg/dL (0.1-1.0); CREATINE KINASE, TOTAL ONLY 91 U/L (26-192); TOTAL PROTEIN, SERUM 8.2 g/dL (6.4-8.2)
[2020-05-06 12:12] LABS: B-TYPE NATRIURETIC PEPTIDE 91 pg/mL (0-100)
[2020-05-06] MEDS ORDERED: ASPIRIN 81 MG CHEWABLE TABLET PO ONE (13:45)
[2020-05-06] MEDS ORDERED: 0.9% SODIUM CHLORIDE 10 ML SYRINGE IVP PRN (13:45)
[2020-05-06] MEDS ORDERED: ACETAMINOPHEN 325 MG TABLET PO PRN (13:45)
[2020-05-06] MEDS ORDERED: NITROGLYCERIN 2% (1 GM=INCH) PACKET TP ONE (13:45)
[2020-05-06 16:13] VITALS: BP 159/89
[2020-05-06] MEDS ORDERED: MORPHINE SULFATE 2 MG/ML SYRINGE IVP PRN (17:45)
[2020-05-06] MEDS ORDERED: MAGNESIUM HYDROXIDE SUSPENSION 30 ML UDCUP PO PRN (17:45)
[2020-05-06] MEDS ORDERED: ALBUTEROL SULFATE 2.5 MG/0.5 ML NEB SOLUTION NEB PRN (17:45)
[2020-05-06] MEDS ORDERED: IPRATROPIUM BROMIDE 0.5 MG/2.5 ML NEB SOLUTION NEB PRN (17:45)
[2020-05-06] MEDS ORDERED: ONDANSETRON HCL 4 MG/2 ML VIAL IVP PRN (17:45)
[2020-05-06] MEDS ORDERED: ZOLPIDEM TARTRATE 5 MG TABLET PO PRN (17:45)
[2020-05-06] MEDS ORDERED: BISACODYL 10 MG RECTAL RECTAL SUPPOSITORY PR PRN (17:45)
[2020-05-06] MEDS ORDERED: HydrALAZINE HCL 20 MG/ML VIAL IVP PRN (17:45)
[2020-05-06] MEDS: RIVAROXABAN 20 MG TABLET PO SCH ×2 (18:00→18:21)
[2020-05-06] MEDS: NITROGLYCERIN 2% (1 GM=INCH) PACKET TP SCH ×2 (18:23→23:38)
[2020-05-06] MEDS: MethylPREDNISolone SOD SUCC 125 MG/2 ML VIAL IVP SCH ×2 (18:36→23:38)
[2020-05-06] MEDS: FERROUS SULFATE 325 MG EC TABLET PO SCH (18:36)
[2020-05-06 20:00] VITALS: BP 162/90
[2020-05-06] MEDS: IPRATROPIUM BROMIDE 0.5 MG/2.5 ML NEB SOLUTION NEB SCH ×2 (20:05→23:19)
[2020-05-06] MEDS: ALBUTEROL SULFATE 2.5 MG/0.5 ML NEB SOLUTION NEB SCH ×2 (20:05→23:19)
[2020-05-06] MEDS: ATENOLOL 25 MG TABLET PO SCH (20:53)
[2020-05-06] MEDS: AMITRIPTYLINE HCL 25 MG TABLET PO SCH (20:53)
[2020-05-06] MEDS: DILTIAZEM HCL 90 MG SR CAPSULE PO SCH (20:53)
[2020-05-06] MEDS: DOCUSATE SODIUM 100 MG CAPSULE PO SCH (20:53)
[2020-05-06] MEDS: ATORVASTATIN CALCIUM 40 MG TABLET PO SCH (20:53)
[2020-05-06] MEDS: ACETAMINOPHEN 325 MG TABLET PO PRN (21:25)
[2020-05-06] MEDS: HEPARIN SODIUM,PORCINE 5,000 UNITS/ML VIAL SQ SCH (23:38)
[2020-05-07 00:14] VITALS: BP 155/75
[2020-05-07] MEDS: ALBUTEROL SULFATE 2.5 MG/0.5 ML NEB SOLUTION NEB SCH ×6 (04:33→23:37)
[2020-05-07] MEDS: IPRATROPIUM BROMIDE 0.5 MG/2.5 ML NEB SOLUTION NEB SCH ×6 (04:33→23:38)
[2020-05-07 04:57] VITALS: BP 123/58
[2020-05-07] MEDS: NITROGLYCERIN 2% (1 GM=INCH) PACKET TP SCH ×3 (06:00→17:37)
[2020-05-07] MEDS: MethylPREDNISolone SOD SUCC 125 MG/2 ML VIAL IVP SCH ×3 (06:22→17:36)
[2020-05-07 06:25] LABS: BASOPHILS % (AUTO) 0.2 % (0.0-2.0); EOSINOPHILS % (AUTO) 0 % (1.0-6.0); HEMATOCRIT 41.4 % (36-46); HEMOGLOBIN 13.7 g/dL (12.0-16.0); LYMPHOCYTES # (AUTO) 0.7 K/uL (1.0-4.8); LYMPHOCYTES % (AUTO) 15.7 % (22.0-44.0); MEAN CORPUSCULAR HEMOGLOBIN 29.9 pg (26.0-34.0); MEAN CORPUSCULAR HGB CONC 33.1 G/dL (31.0-37.0); MEAN CORPUSCULAR VOLUME 91 fL (80-100); MONOCYTES # (AUTO) 0.1 K/uL (0.1-1.0); MONOCYTES % (AUTO) 1.6 % (2.0-9.0); NEUTROPHILS # (AUTO) 3.9 K/uL (1.8-7.7); NEUTROPHILS % (AUTO) 82.5 % (40.0-70.0); PLATELET COUNT (AUTO) 237 K/uL (150-450); RED BLOOD CELL COUNT(AUTO) 4.58 MIL/uL (4.00-5.20); RED CELL DISTRIBUTION WIDTH 14.9 % (11.5-14.5)
[2020-05-07 07:12] LABS: ALANINE AMINOTRANSFERASE 13 U/L (12-78); ALBUMIN 3.5 g/dL (3.4-5.0); ALKALINE PHOSPHATASE 83 U/L (46-116); ANION GAP 15 mmol/L (8-16); ASPARTATE AMINOTRANSFERASE 15 U/L (15-37); BILIRUBIN,TOTAL 0.5 mg/dL (0.1-1.0); CALCIUM, TOTAL 8.8 mg/dL (8.8-10.5); CARBON DIOXIDE 22 mmol/L (22-29); CHLORIDE 96 mmol/L (98-107); CHOL/HDL RATIO 1.8 (3.9-5.7); CHOLESTEROL 185 mg/dL (131-200); CREATININE 0.82 mg/dL (0.60-1.30); GLOMERULAR FILTR. RATE CALC > 60 mL/min (>60); GLUCOSE,RANDOM 215 mg/dL (70-110); HDL CHOLESTEROL 102 mg/dL (40-60); LDL CHOL (CALC.) 73 mg/dL (0-130); POTASSIUM 4.1 mmol/L (3.5-5.1); SODIUM SERUM 133 mmol/L (136-145); TOTAL PROTEIN, SERUM 7.5 g/dL (6.4-8.2); TRIGLYCERIDES 50 mg/dL (15-150); UREA NITROGEN, BLOOD 11 mg/dL (7-18)
[2020-05-07 07:39] VITALS: BP 140/64
[2020-05-07] MEDS: ASPIRIN 81 MG CHEWABLE TABLET PO SCH (08:11)
[2020-05-07] MEDS: FERROUS SULFATE 325 MG EC TABLET PO SCH ×2 (08:11→17:36)
[2020-05-07] MEDS: LISINOPRIL 20 MG TABLET PO SCH (08:12)
[2020-05-07] MEDS: DILTIAZEM HCL 90 MG SR CAPSULE PO SCH ×2 (08:12→20:30)
[2020-05-07] MEDS: DOCUSATE SODIUM 100 MG CAPSULE PO SCH ×2 (08:12→20:29)
[2020-05-07] MEDS: ATENOLOL 25 MG TABLET PO SCH ×2 (08:12→20:29)
[2020-05-07] MEDS: PANTOPRAZOLE SODIUM 40 MG DR TABLET PO SCH (08:12)
[2020-05-07] MEDS: NICOTINE 21 MG/24 HOUR PATCH TD SCH (08:13)
[2020-05-07] MEDS: HEPARIN SODIUM,PORCINE 5,000 UNITS/ML VIAL SQ SCH ×2 (08:13→16:11)
[2020-05-07 11:13] VITALS: BP 144/62
[2020-05-07 15:57] VITALS: BP 131/69
[2020-05-07] MEDS: RIVAROXABAN 20 MG TABLET PO SCH (17:36)
[2020-05-07] MEDS: ACETAMINOPHEN 325 MG TABLET PO PRN (17:36)
[2020-05-07 19:33] VITALS: BP 143/75
[2020-05-07] MEDS: OxyCODONE HCL/ACETAMINOPHEN 5-325 MG TABLET PO PRN (20:29)
[2020-05-07] MEDS: ATORVASTATIN CALCIUM 40 MG TABLET PO SCH (20:29)
[2020-05-07] MEDS: AMITRIPTYLINE HCL 25 MG TABLET PO SCH (20:30)
[2020-05-08] MEDS: MethylPREDNISolone SOD SUCC 125 MG/2 ML VIAL IVP SCH ×4 (00:10→16:41)
[2020-05-08] MEDS: HEPARIN SODIUM,PORCINE 5,000 UNITS/ML VIAL SQ SCH ×3 (00:11→16:00)
[2020-05-08 00:28] VITALS: BP 127/71
[2020-05-08] MEDS: ALBUTEROL SULFATE 2.5 MG/0.5 ML NEB SOLUTION NEB SCH ×4 (02:47→15:00)
[2020-05-08] MEDS: IPRATROPIUM BROMIDE 0.5 MG/2.5 ML NEB SOLUTION NEB SCH ×4 (02:47→15:00)
[2020-05-08 04:15] VITALS: BP 127/65
[2020-05-08] MEDS: NITROGLYCERIN 2% (1 GM=INCH) PACKET TP SCH ×4 (05:38→16:41)
[2020-05-08 07:48] VITALS: BP 120/68
[2020-05-08] MEDS ORDERED: PredniSONE 20 MG TABLET PO SCH (09:00)
[2020-05-08] MEDS: DOCUSATE SODIUM 100 MG CAPSULE PO SCH (09:05)
[2020-05-08] MEDS: LISINOPRIL 20 MG TABLET PO SCH (09:05)
[2020-05-08] MEDS: OxyCODONE HCL/ACETAMINOPHEN 5-325 MG TABLET PO PRN ×2 (09:05→16:40)
[2020-05-08] MEDS: ASPIRIN 81 MG CHEWABLE TABLET PO SCH (09:05)
[2020-05-08] MEDS: PANTOPRAZOLE SODIUM 40 MG DR TABLET PO SCH (09:05)
[2020-05-08] MEDS: FERROUS SULFATE 325 MG EC TABLET PO SCH ×2 (09:06→16:41)
[2020-05-08] MEDS: ATENOLOL 25 MG TABLET PO SCH (09:06)
[2020-05-08] MEDS: DILTIAZEM HCL 90 MG SR CAPSULE PO SCH (09:06)
[2020-05-08] MEDS: NICOTINE 21 MG/24 HOUR PATCH TD SCH (09:07)
[2020-05-08 12:06] VITALS: BP 131/63
[2020-05-08 15:51] VITALS: BP 126/70
[2020-05-08] MEDS ORDERED: ALBU8HFA IH (16:32)
[2020-05-08] MEDS ORDERED: ASPI-728 PO (16:32)
[2020-05-08] MEDS ORDERED: PRED20 PO (16:32)
[2020-05-08] MEDS: RIVAROXABAN 20 MG TABLET PO SCH (16:41)
== END 2020-05-08 17:30 | disposition home or self-care (01) | DRG 191 ==
LOC: EMS 10:41 → 5S 14:34
PROVIDERS: ADMIT Hospitalist; ATTEND Hospitalist
DX: J44.1 Chronic obstructive pulmonary disease with (acute) exacerbation (principal); E87.1 Hypo-osmolality and hyponatremia; E78.00 Pure hypercholesterolemia, unspecified; E78.5 Hyperlipidemia, unspecified; F20.9 Schizophrenia, unspecified; F43.10 Post-traumatic stress disorder, unspecified; F17.210 Nicotine dependence, cigarettes, uncomplicated; F32.9 Major depressive disorder, single episode, unspecified; I10 Essential (primary) hypertension; Z20.828 Contact with and (suspected) exposure to other viral communicable diseases; M79.7 Fibromyalgia; Z71.6 Tobacco abuse counseling; Z86.718 Personal history of other venous thrombosis and embolism; Z88.8 Allergy status to other drugs, medicaments and biological substances; Z79.899 Other long term (current) drug therapy
CPT/HCPCS: 83935; 84300; 87426; 93005; 93306; 94640; G0378; J1644; J2930; 36415-L1; 36415-TC; 71045-TC; 80061-TC; J7613